=== PATIENT | female | born 1985 | race Caucasian/White ===

== ENCOUNTER 2021-03-31 02:09 | Observation (INO) | payer BC, SELFPAY ==
[2021-03-31] VITALS (9 sets, daily range): BP systolic 101–126; BP diastolic 46–88; PULSE 60–83; RESP 14–18; TEMP 36.1–36.8; O2SAT 96–100; BMI 39.0
--- NOTE | ~2021-03-31 | US_ITS ---
US abdomen limited DATE: 03/31/2021 07:40 INDICATION: Right upper quadrant abdominal pain TECHNIQUE: Real-time imaging of liver, pancreas, gallbladder areas COMPARISON: 03/31/2021 CT abdomen pelvis FINDINGS: No hepatic or pancreatic space-occupying mass lesion is detected. Normal hepatopedal portal venous flow direction. There are multiple filling defects in the dependent aspect of the gallbladder with associated posteri or shadowing, consistent with cholelithiasis. No gallbladder wall thickening. The common bile duct measures 4.3 mm, normal. Negative sonographic Vieira's sign. IMPRESSION: Cholelithiasis; no gallbladder wall thickening. Negative sonographic Vieira's sign Reviewed, dictated and finalized at [facility] Reviewed, dictated and finalized at [facility]. IMPRESSION: Cholelithiasis; no gallbladder wall thickening. Negative sonographi c Vieira's sign
--- NOTE | ~2021-03-31 | CT_ITS ---
EXAMINATION: CT abdomen pelvis w con DATE: 03/31/2021 04:43 INDICATION: Right upper quadrant abdominal pain TECHNIQUE: Computed tomography (CT) of the abdomen and pelvis was performed with 100 cc Omnipaque 350 intravenous contrast. Automated exposure control and iterative reconstruction technique were employe d. Exam dose: 1479.55 mGy-cm total exam DLP. COMPARISON: None. FINDINGS: There is minimal dependent atelectasis in both lower lobes. The lung bases are otherwise cl ear. Normal heart size. No pericardial or pleural effusion. There are probable gallstones. No gallbladder wall thickening or pericholecystic fluid or fat strandi ng. The liver, spleen, pancreas, and bile and pancreatic ducts are unremarkable. No adrenal mass lesion. No renal mass lesion or urinary tract calculus or hydroureteronephrosis. The urinary bladder is unremarkable. The uterus and adnexal areas are unremarkable except for 2.6 cm righ t ovarian cyst. IUD within the uterus. Small sliding hiatal hernia. Status post appendectomy. No bowel obstruction, bowel wall thickening, pneumatosis or intraperitoneal free air. Small fat-containing umbilical hernia. No suspicious osteolytic or osteoblastic lesions are noted. IMPRESSION: Possible cholelithiasis 2.6 cm right ovarian cyst Small sliding hiatal hernia Status post appendectomy Reviewed, dictated and finalized at [facility] Reviewed, dictated and finalized at [facility].
--- NOTE | 2021-03-31 02:18 | ED.GENADULT ---
HPI - General Adult General Chief complaint: Abdominal Pain Stated complaint: UPPER ABD PAIN Source: patient Mode of arrival: EMS Limitations: no limitations History of Present Illness HPI narrative: Patient is a 35-year-old female with a history of rheumatoid arthritis, on methotrexate, biliary colic who presents for evaluation of right upper quadrant abdominal pain. Patient reports onset of right upper quadrant pain this evening after eating Sudanese food. She had immediate nausea and vomiting after the meal. She reports aching, sharp RUQ pain with radiation to the back and shoulders. No fever or chills.No chest pain or dyspnea. No lower abdominal pain, urinary symptoms or constipation. Patient does state that she has been dealing with symptoms over the past 2 years since the of her daughter. Patient states that she struggles with symptoms postprandially quite often. Patient states she had an endoscopy (?) out patient at [facility] last week and was told she needed a cholecystectomy. She is not scheduled for surgery yet and has not established with a surgeon. She wants to be evaluated at this facility. Related Data Allergies Allergy/AdvReac Type Severity Reaction Status Date / Time cefaclor [From [facility]] Allergy Hives Verified 03/31/21 05:28 Review of Systems Review of Systems: CONSTITUTIONAL: Denies fever, chills, or sweats. EYES: Denies visual changes, redness, or discharge. ENT: Denies rhinorrhea, congestion, sore throat, or otalgia. CARDIOVASCULAR: Denies chest pain, palpitations, or edema. RESPIRATORY: Denies cough or dyspnea. GASTROINTESTINAL: Reports right upper quadrant abdominal pain, nausea, vomiting GENITOURINARY: Denies dysuria or hematuria. SKIN: Denies rash or itching. MUSCULOSKELETAL: Denies lower back pain other joint pain NEUROLOGIC: Denies headache, numbness, or weakness. PSYCHIATRIC: Denies anxiety or depression. [facility] Social History Social History (Updated 03/31/21 @ 02:48 by Jacqueline Day MD) Smoking status: Never smoker Alcohol intake: never Substance use: never Gender identity (if verbalized by the patient): Female Exam Narrative: GENERAL: Awake, alert, conversant, uncomfortable appearing HEAD: Normocephalic, atraumatic. EYES: PERRLA and EOMI. ENT: Nares clear, no rhinorrhea or epistaxis. Mucous membranes moist. NECK: Supple. CHEST: No respiratory distress, breathing even and non labored HEART: Regular rate, sinus rhythm ABDOMEN:Non distended, right upper quadrant abdominal tenderness, mild epigastric tenderness, positive guarding, no rebound, no right lower or left lower quadrant tenderness EXTREMITIES: Normal range of motion. No edema. SKIN: Warm, dry, no rash. NEURO:No focal deficits. Alert and oriented x3 Course Vital Signs Vital signs: Vital Signs Temperature 36.8 C 03/31/21 02:15 Pulse Rate 80 03/31/21 02:15 Respiratory Rate 18 03/31/21 02:15 Blood Pressure 124/65 03/31/21 02:15 Pulse Oximetry 99 03/31/21 02:15 Temperature 36.8 C 03/31/21 02:15 Pulse Rate 60 03/31/21 05:40 Respiratory Rate 16 03/31/21 05:40 Blood Pressure 103/63 03/31/21 05:40 Pulse Oximetry 99 03/31/21 05:40 Medical Decision Making MDM Narrative Medical decision making narrative: Patient presenting for evaluation of right upper quadrant abdominal pain, nausea and vomiting. At the time of assessment, ABCs are intact and vital signs are stable. Patient has focal tenderness in the right upper quadrant, positive Vieira sign. Patient with some guarding. IV access obtained and labs are drawn. Patient was given IV fluids, antiemetic, pain medication. Patient with leukocytosis, transaminitis. Symptoms are concerning for acute cholecystitis. CT scan with evidence of gallbladder distention and slightly prominent wall. Will obtain right upper quadrant ultrasound. Case discussed with on-call surgeon Dr. Ibrahim, who will admit the patient. Differential Diagnosis
[2021-03-31] MEDS: MORPHINE SULFATE (*CRX) 4 MG/ML INJ IV PUSH (03:05)
[2021-03-31] MEDS: SODIUM CHLORIDE 0.9% IV 1,000 ML 999 ML IV CONT (03:05)
[2021-03-31] MEDS: ONDANSETRON INJ 4 MG/2 ML VIAL IV PUSH (03:05)
[2021-03-31 03:48] LABS: Basophils Absolute Auto 0.1 K/mm3 (0.0-0.1); Basophils Percent Auto 0.4 % (0.2-1.2); Hematocrit 38.9 % (37.0-47.0); Hemoglobin 12.8 g/dL (12.0-15.0); Immature Granulocyte Absolute 0.08 K/mm3 (0.00-0.031); Immature Granulocyte Percent A 0.7 % (0-0.5); Lymphocytes Absolute Auto 1.22 K/mm3 (0.9-3.2); Lymphocytes Percent Auto 10.4 % (18.3-44.2); Mean Corpuscular HGB Conc 32.9 g/dl (32-36); Mean Corpuscular Hemoglobin 30.3 pg (26-34); Mean Platelet Volume 9.7 fl (7.4-10.4); Monocytes Absolute Auto 0.7 K/mm3 (0.1-0.6); Monocytes Percent Auto 5.7 % (2.6-8.5); Neutrophils Absolute Auto 9.7 K/mm3 (1.3-6.7); Neutrophils Percent Auto 82.8 % (45.5-73.1); Platelet Count Result 227 k/mm3 (150-375); Red Blood Count 4.23 M/mm3 (4.2-5.4); Red Cell Distribution Width 14.5 % (11.5-14.5); White Blood Count 11.7 K/mm3 (4.5-10.0)
[2021-03-31 03:59] LABS: Alanine Aminotransferase 141 U/L (4-35); Albumin Level 4.7 g/dL (3.5-5.1); Alkaline Phosphatase 99 U/L (38-126); Anion Gap 12 mmol/L (8-16); Aspartate Amino Transferase 299 U/L (14-36); Blood Urea Nitrogen 11 mg/dL (7-17); Calcium 9.3 mg/dL (8.4-10.2); Carbon Dioxide 25 mmol/L (22-30); Chloride 101 mmol/L (98-107); Estimated CRCL calculation 122 ml/min; Estimated Glomerular Filt Rate > 60; Glucose 163 mg/dL (65-110); Lipase 173 U/L (23-300); Potassium 4.1 mmol/L (3.4-5.0); Sodium 138 mmol/L (137-145)
[2021-03-31 05:22] LABS: Add Urine Microscopic? YES; Appearance Urine Clear (Clear); Bacteria Urine Trace /hpf; Bilirubin Urine Negative (Negative); Blood Urine Negative (Negative); Color Urine Yellow (Yellow); Glucose Urine UA Negative (Negative); Ketones Urine Negative (Negative); Leukocyte Esterase Ur Negative LEU/UL (Negative); Nitrate Urine Negative (Negative); Protein Urine Negative (Negative); Specific Grav Ur 1.017 (1.001-1.035); Squamous Epithelial Cell Urine Few /hpf (Few)
--- NOTE | 2021-03-31 12:00 | PM.IMHP ---
H&P: HPI History of Present Illness Date/Time: 03/31/21 12:00 Chief Complaint: RUQ abdominal pain Narrative: This is a 35-year-old female with a history of rheumatoid arthritis on methotrexate, who presented to the ED via EMS from home for evaluation of abdominal pain. She reports having intermittent upper abdominal pain intermittently over the past 2 years. Typically, her pain is in the RUQ and mild. She was recently hospitalized at [facility] in February and underwent what sounds like an EGD on 03/17/21 for her abdominal pain. Reportedly, this showed reflux esophagitis and currently takes lansoprazole. She reports that her abdominal pain improved and she was discharged, and instructed to follow up with the surgeon. She has not yet made this appointment. She does not recall being instructed to follow a low fat diet, so she has been eating a regular diet. The patient reports that last night she had eaten Swiss food for dinner and a few hours later, around 8:30 pm, she developed RUQ abdominal pain. Her pain radiated to her mid back and across her upper abdomen. She developed nausea and vomiting. She tried to go to sleep and was woken up from sleep due to her pain. Since she did not have anyone to drive her to the hospital, she called EMS to take her to the emergency department. In the ED, CT scan of the abdomen/pelvis showed possibel cholelithiasis, small fat containing umbilical hernia, and 2.6 cm right ovarian cyst. RUQ ultrasound ordered and showed cholelithiasis with normal CBD, no gallbladder wall thickening, pericholecystic fluid, and a - Vieira's sign. Labs showed a white blood cell count of 11,700, normal total bilirubin and alk phos, AST 299, and ALT 141. Urinalysis was negative for UTI. Our service was called regarding cholelithiasis with RUQ pain and transaminitis. The patient is now seen in the ER. She reportedly is feeling much better. She reports just some RUQ soreness, but no significant abdominal pain. No nausea and no more episodes of vomiting since last night. Previous abdominal surgeries include a laparoscopic appendectomy and one delivery about 2 years ago. No other complaints at this time. Last does of methotrexate was last Tuesday. Review of Systems Review of Systems: All systems reviewed & are unremarkable except as noted in HPI and below Constitutional: Constitutional: Reports as per HPI, Denies chills, Denies fatigue and Denies fever(s) Eyes: Eyes: Reports no additional eye complaints and Denies change in vision ENT: Reports system reviewed and no additional complaints, except as documented and Reports Normal hearing present Cardiovascular: Cardiovascular: Reports no additional cardiovascular complaints, Denies chest pain and Denies leg edema Respiratory: Respiratory: Reports no additional respiratory complaints, Denies cough and Denies dyspnea Gastrointestinal: Gastrointestinal: Reports as per HPI, Reports no additional gastrointestinal complaints, Reports abdominal pain (RUQ), Denies change in bowel habits, Denies change in stool character, Denies constipation, Denies diarrhea, Reports nausea and Reports vomiting Genitourinary: Genitourinary: Reports no additional female genitourinary complaints Musculoskeletal: Musculoskeletal: Denies joint swelling Integumentary/Breasts: Skin/Breast: Denies jaundice Neurologic: Reports system reviewed and no additional complaints, except as documented, Denies dizziness, Denies focal weakness, Denies numbness and Denies tingling Psychiatric: Psychiatric: Reports depression (takes medication for depression, controlled), Denies homicidal ideation and Denies suicidal ideation [facility] Past Medical History Medical History Depression Rheumatoid arthritis Surgical History Surgical History H/O section x1 History of appendectomy Laparoscopic appendecto
--- NOTE | 2021-03-31 12:10 | ADMGEN ---
This patient, Radha Payne, was admitted to [facility] Surg Room 314-01. Patient/family oriented to hospital policies and general routines including ID bracelet, bed and alarms, visiting hours, pain management, procedures, bathroom and other care routines, personal items, smoking policy, room service/diet, and visiting hours. Information on how to activate the Rapid Response Team has been discussed. Patient/Family are encouraged to report perceived risks to care and to ask questions if they do not understand what they are told or what they should do.
[2021-03-31] MEDS: SODIUM CHLORIDE 0.9% IV 1,000 ML 125 ML IV CONT ×2 (12:40→21:30)
[2021-04-01] VITALS (21 sets, daily range): BP systolic 97–126; BP diastolic 46–76; PULSE 16–82; RESP 10–20; TEMP 36.3–36.9; O2SAT 92–100
[2021-04-01] MEDS: SODIUM CHLORIDE 0.9% IV 1,000 ML 125 ML IV CONT (05:20)
[2021-04-01 06:44] LABS: Hematocrit 39.1 % (37.0-47.0); Hemoglobin 12.2 g/dL (12.0-15.0); Mean Corpuscular HGB Conc 31.2 g/dl (32-36); Mean Corpuscular Hemoglobin 30.1 pg (26-34); Mean Corpuscular Volume 96.5 fl (80-100); Mean Platelet Volume 10.6 fl (7.4-10.4); Platelet Count Result 181 k/mm3 (150-375); Red Blood Count 4.05 M/mm3 (4.2-5.4); Red Cell Distribution Width 14.8 % (11.5-14.5); White Blood Count 7.3 K/mm3 (4.5-10.0)
[2021-04-01 06:55] LABS: Alanine Aminotransferase 172 U/L (4-35); Albumin Level 3.5 g/dL (3.5-5.1); Alkaline Phosphatase 90 U/L (38-126); Anion Gap 7 mmol/L (8-16); Aspartate Amino Transferase 135 U/L (14-36); Bilirubin,Total 1.2 mg/dL (0.2-1.3); Blood Urea Nitrogen 9 mg/dL (7-17); Calcium 7.9 mg/dL (8.4-10.2); Carbon Dioxide 26 mmol/L (22-30); Chloride 105 mmol/L (98-107); Estimated CRCL calculation 110 ml/min; Estimated Glomerular Filt Rate > 60; Glucose 104 mg/dL (65-110); Potassium 4.2 mmol/L (3.4-5.0); Sodium 138 mmol/L (137-145)
[2021-04-01] MEDS: PANTOPRAZOLE SODIUM IV 40 MG VIAL IV PUSH (08:15)
--- NOTE | 2021-04-01 11:40 | PC.NURSE ---
To OR via stretcher.
--- NOTE | 2021-04-01 12:07 | WPDHPUPDATE1 ---
History and Physical Update Update Date/Time: 04/01/21 12:07 History and Physical has been reviewed, including an updated exam of the patient. There are NO changes in the patient's condition. Risks, benefits, and alternatives have been discussed and questions answered. Patient agrees to proceed with procedure.
--- NOTE | 2021-04-01 12:21 | WPDANESEPPF ---
Anes - Initial Pre Proc Eval Procedure: Operation Date: 04/01/21 14:00 Proposed Procedures p Laparoscopic Cholecystectomy - Monae Ibrahim MD Date/Time: 04/01/21 12:21 Surgeon: Monae Ibrahim MD Pre Op Diagnosis: BILIARY COLIC Patient Data Age: 35 Gender: F Height: 1.7 m Weight: 113.2 kg Last Vital Signs Temp 36.7 C 04/01/21 05:25 Pulse 60 04/01/21 05:25 Resp 20 04/01/21 05:25 BP 101/49 L 04/01/21 05:25 Pulse Ox 93 04/01/21 05:25 Allergies Allergy/AdvReac Type Severity Reaction Status Date / Time cefaclor [From [facility]] Allergy Hives Verified 03/31/21 05:28 Home Medications Medication Instructions Recorded Confirmed Type bupropion HCl 300 mg PO DAILY 03/31/21 03/31/21 History ergocalciferol (vitamin D2) 1,250 mcg WEEKLY 03/31/21 03/31/21 History escitalopram oxalate 10 mg DAILY 03/31/21 03/31/21 History fluticasone propion-salmeterol 1 inh INHALATION PRN PRN 03/31/21 03/31/21 History [Wixela Inhub] folic acid 1 mg DAILY 03/31/21 03/31/21 History lansoprazole 30 mg DAILY 03/31/21 03/31/21 History methotrexate sodium 20 mg WEEKLY 03/31/21 03/31/21 History Laboratory Tests 04/01/21 04/01/21 06:08 06:08 WBC 7.3 K/mm3 K/mm3 (4.5-10.0) RBC 4.05 M/mm3 L M/mm3 (4.2-5.4) Hgb 12.2 g/dL g/dL (12.0-15.0) Hct 39.1 % % (37.0-47.0) MCV 96.5 fl fl (80-100) MCH 30.1 pg pg (26-34) MCHC 31.2 g/dl L g/dl (32-36) RDW 14.8 % H % (11.5-14.5) Plt Count 181 k/mm3 k/mm3 (150-375) MPV 10.6 fl H fl (7.4-10.4) Sodium 138 mmol/L mmol/L (137-145) Potassium 4.2 mmol/L mmol/L (3.4-5.0) Chloride 105 mmol/L mmol/L (98-107) Carbon Dioxide 26 mmol/L mmol/L (22-30) Anion Gap 7 mmol/L L mmol/L (8-16) BUN 9 mg/dL mg/dL (7-17) Creatinine 0.80 mg/dL mg/dL (0.7-1.0) Estim Creat Clear Calc 110 ml/min ml/min Estimated GFR > 60 (59 - ) Glucose 104 mg/dL mg/dL (65-110) Calcium 7.9 mg/dL L mg/dL (8.4-10.2) Total Bilirubin 1.2 mg/dL mg/dL (0.2-1.3) AST 135 U/L H U/L (14-36) ALT 172 U/L H U/L (4-35) Alkaline Phosphatase 90 U/L U/L (38-126) Total Protein 6.0 g/dL L g/dL (6.3-8.2) Albumin 3.5 g/dL g/dL (3.5-5.1) Patient hx anesthesia problems: none Family hx anesthesia problems: none Results Review: All pre-operative results and documents have been reviewed as part of the pre-operative evaluation. [facility] Past Medical History Medical History Asthma Depression Rheumatoid arthritis Surgical History Surgical History H/O section x1 History of appendectomy Laparoscopic appendectomy in 2006 Family History Family History Other No pertinent family history Social History Social History Smoking packs per day: 0.5 Smoking cigarettes per day: 10.0 Years smoked: 1 Smoking pack-years: 0.50 Smoking status: Never smoker Tobacco type: cigarettes Alcohol intake: current Drinks per week: 0 Alcohol use details: Occasional/rare Substance use: never Substance use type: does not use Other substance usage details: social drinker; rarely drinks alcohol Living arrangements: with family Occupation/Education: occupation Additional occupation/education comments: Benefits Director Gender identity (if verbalized by the patient): Female Spiritual care concerns: No Anes - Eval Final PreProcedure Day of Procedure 04/01/21 12:21 Patient weight: obese Heart: regular rate and rhythm Lungs: clear to auscultation Airway: Mallampati scale class II Neurological: alert and oriented Last oral intake: >/= 8 hours ASA clas
[2021-04-01] MEDS: LACTATED RINGERS 1,000 ML 30 ML IV CONT ×2 (12:40→14:00)
[2021-04-01] MEDS: SCOPOLAMINE 1.5 MG PATCH TRANSDERM (12:45)
[2021-04-01] MEDS: BUPIVACAINE HCL 0.5% PF 30 ML VIAL INFILTRATE (13:22)
--- NOTE | 2021-04-01 13:55 | W.PM.PROC2 ---
Procedure Note - Detailed Date of Procedure 04/01/21 Pre-op Diagnosis cholecystitis, cholelithiasis Post-op Diagnosis same Procedure Performed laparoscopic cholecystectomy Surgeon Monae Ibrahim MD Anesthesia general Indications 35 y/o F presenting to ED c/o severe upper abd pain. Workup c/w cholecystitis, cholelithiasis Findings moderate cholecystitis, cholelithiasis Description of Procedure The patient was taken to the operating room placed in the supine position. After adequate induction of general anesthesia, the patient was prepped and draped in normal sterile fashion. A time-out was then performed to verify the patient's identity as well as the procedure being performed. I then made a 5 mm incision in the infraumbilical region. Through this, a Veress needle was placed into the peritoneal cavity and CO2 gas was then insufflated. After adequate pneumoperitoneum was achieved, the Veress needle was removed and a 5 mm optiview trocar was placed through this incision under direct visualization. I then placed the laparoscope through this trocar site and under direct visualization placed a further 12 mm subxiphoid port as well as 2 additional 5 mm ports in the right upper abdomen. The gallbladder was then identified and was noted to be moderately inflamed, distended, and full of gallstones. I was able to place a grasper at the dome of the gallbladder and this was retracted anterior and cephalad up over the liver. A 2nd retractor was then placed at the infundibulum and retracted laterally, this allowed visualization of the triangle of Calot. I then was able to visualize the cystic duct in its entirety from its proximal insertion into the gallbladder, to its distal junction with the common hepatic/common bile duct junction. At this point, I carefully skeletonized the proximal cystic duct with the [place] dissector. I then clipped and transected the proximal cystic duct. Next I visualized the cystic artery. Again the artery was skeletonized, clipped, and transected. I then used the Bovie cautery to take down the peritoneal attachments of the gallbladder off the liver bed. This was somewhat difficult given the amount of inflammation in the posterior space. Once the gallbladder specimen was completely detached, an endo-pouch was placed through the 12 mm port site. I then placed the gallbladder specimen into the Endo pouch and removed the endo-pouch from the 12 mm port site. The specimen will now be sent to pathology for further review. I then copiously irrigated the right upper quadrant. Some mild oozing was noted in the liver bed and this was controlled with the bovie cautery. Hemostasis was noted in the liver bed, the clips were noted to be in good position on both the cystic duct stump and the cystic artery stump. No other pathology was noted in the right upper quadrant. I then moved the laparoscope to the subxiphoid port. No iatrogenic injury or other pathology was noted in the lower abdomen. I then closed the 12 mm trocar site under direct visualization using the Abilio cone and 0 Vicryl suture. At this point, the abdomen was desufflated and all ports removed. All port sites were then closed with 4.O Monocryl subcuticular sutures. Dermabond was placed on each incision. The patient tolerated the procedure well, was extubated in the operating room postoperative and will be transferred to the recovery room in stable condition Estimated Blood Loss 20 Drains No Packing No Pathology yes Complications No immediate complications Condition stable Disposition PACU
[2021-04-01] MEDS: ONDANSETRON INJ 4 MG/2 ML VIAL IV PUSH ×2 (14:13→17:08)
[2021-04-01] MEDS: fentaNYL CITRATE INJ (*CRX) 100 MCG/2 ML VIAL 25 MCG IV PUSH ×7 (14:14→16:10)
[2021-04-01] MEDS: diphenhydrAMINE HCl INJ 50 MG/ML VIAL 25 MG IV PUSH (14:49)
--- NOTE | 2021-04-01 14:58 | SUR.PHASEI ---
pt still c/o nausea after meds given per aug. md garrett called for new orders.
[2021-04-01] MEDS: PROMETHAZINE HCL 25 MG/ML AMPUL 12.5 MG IV PUSH (16:08)
--- NOTE | 2021-04-01 16:54 | SUR.PHASEI ---
another 25 mcg of fentanyl given to pt at 1645 after I canceled her medications for the transfer
--- NOTE | 2021-04-01 16:55 | PC.NURSE ---
Back from OR via stretcher.
[2021-04-01] MEDS: MORPHINE SULFATE (*CRX) 2 MG/ML INJ IV PUSH (17:08)
[2021-04-01] MEDS: HYDROcodone/acetaminophen (*CRX) 5-325 MG TABLET 1 TAB PO (21:19)
[2021-04-02 03:49] VITALS: BP 108/59; PULSE 64; RESP 18; TEMP 36.9; O2SAT 94
[2021-04-02 08:00] VITALS: BP 102/56; PULSE 57; RESP 16; TEMP 36.4; O2SAT 98
[2021-04-02] MEDS: HYDROcodone/acetaminophen (*CRX) 5-325 MG TABLET 1 TAB PO (08:25)
--- NOTE | 2021-04-02 09:50 | PM.DS ---
DS: Admitting Diagnosis Discharge Date 04/02/2021 Admitting Diagnosis cholecystitis, cholelithiasis DS: Discharge Diagnosis Discharge Diagnosis (1) Cholecystitis: Code(s): K81.9 - Cholecystitis, unspecified Status: Acute Assessment and Plan: s/p lap rupinder, doing well, cont routine postop care, home c po analgesia, f/u 2 wks DS: Summary Hospital Course Reason for hospitalization: cholecystitis, cholelithiasis Hospital Course: 35 y/o F presenting to ED on 03/31 c/o severe upper abd pain assoc c N/V. Workup, including imaging, c/w cholecystitis, cholelithiasis. Pt admitted to surgical service and started on IV abx. On 04/01, pt taken to OR for urgent lap cholecystectomy, please see full op report for details. Postop, pt did well and transferred back to floor. Pt has done well postop and on POD 1 she had benign exam, kian diet, pain well controlled. Pt also up and ambulating s issue. Pt well be discharged at this time and f/u 2 wks. Status at Discharge Functional status at discharge: independent ambulation Overall status at discharge: patient is progressing back to baseline Time Spent with Patient Time attestation: Total time spent providing and/or coordinating discharge services: Time spent: Less than 30 minutes Exam Const: General: cooperative, comfortable and no acute distress Orientation/consciousness: patient oriented x3 Resp: Auscultation: clear to auscultation bilaterally Cardio: Rate: regular rate Rhythm: regular rhythm GI: Inspection: normal to inspection, distended and incision GI Palp: Yes Tenderness to palpation present (GI) DS: Data Data Completed and Pending Pending studies at discharge: Pending at discharge 04/01/21 13:45 Surgical [PTH] Routine Discharge Plan Discharge Attending physician on discharge: Monae Ibrahim Discharging Clinician: Monae Ibrahim Anticipated Discharge Date/Time: 04/01/21 18:00 Patient Disposition: Home, Self-Care Activity: other - see discharge instructions Diet: other - see discharge instructions Wound Care Instructions: follow printed instructions Discharge Instructions: DISCHARGE INSTRUCTION SHEET FOR HERNIA, GALLBLADDER AND APPENDIX SURGERIES DR. IBARHIM PATIENT TO TAKE HOME 1. May shower in 24 hours, no soaking in bath x 2weeks. 2. Call office for: Wound increasingly painful or bleeding Vomiting Fever of greater than 101 degrees 3. If no bowel movement for three days, take 1 oz. (30 ml) Milk of Magnesia or MiraLax 17g 1 to 2 times daily. 4. No heavy lifting > 10-15 pounds x 6 weeks for hernia repairs and 2 weeks for laparoscopic cholecystectomy or appendectomy. 5. No driving for 3 days or while taking narcotic pain medications. 6. Ice to surgical site for 48 hours (30 min on, then 30 min off). 7. Up walking 10-30 minutes three times per day. 8. Resume previous home medications. 9. Follow-up 10-14 days in office for wound check or as previously scheduled. ([phone]) 10. Oral pain medications prescription to be sent to pharmacy. Take Tylenol 500mg every 6 hours and Ibuprofen 600mg every 6 hours for the first 2 days, then as needed. 11. NUTRITION: Start out by drinking fluids and increase your diet as tolerated. If you experience nausea, try dry toast, crackers, and 7-UP. If nausea or vomiting persists, contact your surgeon?s office. 12. Gallbladders-Low Fat Diet for 2 weeks (send care note of low fat diet) 13. Inguinal Hernias-wear scrotal support for 48 hours 14. Abdominal Hernias-if sent home with abdominal binder, wear for the first 2 weeks (may remove to shower or at night to sleep).
== END 2021-04-02 09:17 | disposition home or self-care (01) ==
LOC: ANHED 07:19 → ANH3MEDSUR 10:46
PROVIDERS: Nurse Practitioner Family; Admitting Provider Surgery; Emergency Provider Emergency Medicine; Visit Provider Surgery
PROC: 0FT44ZZ Resection of Gallbladder, Percutaneous Endoscopic Approach (ICD-10-PCS; CPT 47562; principal; 2021-04-01 14:00)
DX: K80.10 Calculus of gallbladder with chronic cholecystitis without obstruction (principal); R10.11 Right upper quadrant pain; M06.9 Rheumatoid arthritis, unspecified; R74.01 Elevation of levels of liver transaminase levels; Z23 Encounter for immunization
CPT/HCPCS: 47562; 36415; 74177; 76705; 80053; 81001; 81025; 83690; 85025; 85027; 88304; 90471; 90653; 96361; 96365; 96375; 99285; A9270; C9113; G0008; G0378; J1100; J1200; J2250; J2270; J2405; J2543; J2550; J2704; J2710; J3010; J7030; J7120; Q9967